=== PATIENT | female | born 1995 | race Caucasian/White ===

== ENCOUNTER 2022-10-27 02:54 | Inpatient (IN) | payer BC, MEDICAID ==
[2022-10-27] MEDS: Lactated Ringers 1,000 ML IV SCH ×2 (03:10→04:04)
[2022-10-27 03:27] LABS: ANION GAP 18.2 mEq/L (7-13); CHLORIDE,CL 104 mmol/L (98-107); SODIUM,NA 138 mmol/L (136-145)
[2022-10-27 03:30] LABS: ESTIMATED GFR 122 mL/min (>=60)
[2022-10-27] MEDS ORDERED: Oxytocin/Normal Saline 30 UNIT/500 ML BAG IV SCH (03:38)
[2022-10-27 03:47] LABS: CORONAVIRUS COVID-19 NAA NEGATIVE (NEGATIVE); RESPIRATORY SYNCYTIAL VIR NAA NEGATIVE (NEGATIVE)
[2022-10-27] MEDS ORDERED: Acetaminophen 325 MG Tab PO PRN (03:48)
[2022-10-27] MEDS ORDERED: Simethicone 80 MG Tab.Chew PO PRN (03:48)
[2022-10-27] MEDS ORDERED: Sodium Chloride 0.9% 10 ML Syringe FLUSH PRN (03:48)
[2022-10-27] MEDS ORDERED: Oxytocin 10 Units/1 ML SDV IM PRN (03:48)
[2022-10-27] MEDS ORDERED: Carboprost Tromethamine 250 MCG/1 ML Amp IM PRN (03:48)
[2022-10-27] MEDS ORDERED: Misoprostol 400 MCG (4 X 100 MCG TAB) RECTAL PRN (03:48)
[2022-10-27] MEDS ORDERED: Benzocaine/Menthol 20%-0.5% Spray 78 GM Cannister TOP PRN (03:48)
[2022-10-27] MEDS: Ibuprofen 800 MG Tab PO PRN (09:46)
[2022-10-27] MEDS: Docusate Sodium 100 MG Cap PO PRN (09:46)
[2022-10-27] MEDS: Prenatal Multivitamin with Calcium/Folic Acid/Iron Tab PO SCH (09:46)
[2022-10-28] MEDS: Prenatal Multivitamin with Calcium/Folic Acid/Iron Tab PO SCH (09:39)
[2022-10-28] MEDS: Docusate Sodium 100 MG Cap PO PRN (09:40)
[2022-10-28] MEDS: Ibuprofen 800 MG Tab PO PRN (09:40)
== END 2022-10-28 13:25 | disposition home or self-care (01) | DRG 560 ==
LOC: DL.OBCHECK 02:54 → DL.OB 02:57 → OBSVTOIN 03:27 → DL.OB 03:27 → MERGE 03:27
PROVIDERS: ADMIT Family Medicine; ATTEND Family Medicine
PROC: 10907ZC Drainage of Amniotic Fluid, Therapeutic from Products of Conception, Via Natural or Artificial Opening (ICD-10-PCS; principal; 2022-10-27)
PROC: 10E0XZZ Delivery of Products of Conception, External Approach (ICD-10-PCS; principal; 2022-10-27)
DX: O80 Encounter for full-term uncomplicated delivery (principal); Z3A.39 39 weeks gestation of pregnancy; Z37.0 Single live birth
CPT/HCPCS: 0241U; 36415; 59409; 80053; 85027; 86850; 86900; 86901; A9270-GY; J7120